=== PATIENT | female | born 1995 | race Caucasian/White ===

== ENCOUNTER 2021-02-20 13:51 | Emergency (ER) | payer MEDICAID, OTHER ==
[~2021-02-20] VITALS: Ht 167.6 cm; Wt 81.6 kg
[2021-02-20] MEDS ORDERED: OXYCODONE/APAP 5-325 MG TABLET PO ONE ×2 (14:30→19:15)
[2021-02-20] MEDS ORDERED: OXYCODONE/APAP 5-325 MG TABLET ONE ×2 (14:36→19:25)
[2021-02-20 14:41] LABS: HEMATOCRIT 36.2 % (31.2-41.9); MEAN CORPUSCULAR HEMOGLOBIN 33.8 uug (24.7-32.8); MEAN CORPUSCULAR VOLUME 98.2 fL (75.5-95.3); PLATELET COUNT (AUTO) 210 K/uL (179-408)
[2021-02-20 14:46] LABS: CARBON DIOXIDE 20 mmol/L (21-32); CHLORIDE 105 mmol/L (98-107); CREATININE 0.9 mg/dL (0.6-1.3); GLUCOSE 91 mg/dL (74-106); POTASSIUM 4.1 mmol/L (3.5-5.1); UREA NITROGEN, BLOOD 15 mg/dL (7-18)
[2021-02-20 14:51] LABS: ETHANOL 56 MG/DL (0-0)
[2021-02-20 14:53] LABS: ALANINE AMINOTRANSFERASE 13 U/L (14-59); ALKALINE PHOSPHATASE 30 U/L (50-136); ASPARTATE AMINOTRANSFERASE 10 U/L (15-37); BILIRUBIN,DIRECT 0.1 mg/dL (0.0-0.2); BILIRUBIN,TOTAL 0.2 mg/dL (0.2-1.0); TOTAL PROTEIN, SERUM 7.5 g/dL (6.4-8.2)
[2021-02-20 14:54] LABS: ACETAMINOPHEN < 2.0 ug/mL (10-30)
[2021-02-20 16:21] LABS: *AMPHETAMINE, URINE NEGATIVE (NEGATIVE); *CANNABINOID, URINE NEGATIVE (NEGATIVE); *COCCAINE, URINE NEGATIVE (NEGATIVE); *OPIATE, URINE POSITIVE (NEGATIVE); *PHENCYCLIDINE SCREEN,URINE NEGATIVE (NEGATIVE)
--- NOTE | 2021-02-20 17:02 | NUR ---
Patient is eating dinner tray with good appetite, NAD. She is calm & cooperative@this time.
[2021-02-20] MEDS ORDERED: KETOROLAC TROMETHAMINE 30 MG INJ IM ONE (17:30)
--- NOTE | 2021-02-20 17:33 | NUR ---
Patient is resting comfortably on gurney with eyes closed, intermittently sleeping & using her cellphone. Medically cleared by Dr Pérez. Psych bench worker helper Jackie's ETA= 1830.
[2021-02-20] MEDS ORDERED: KETOROLAC TROMETHAMINE 30 MG INJ ONE (18:04)
--- NOTE | 2021-02-20 18:06 | NUR ---
Patient wants more for pain, MD notified.
[2021-02-20] MEDS ORDERED: GABAPENTIN 300 MG CAPSULE PO ONE (18:15)
[2021-02-20] MEDS ORDERED: LORAZEPAM 2 MG/1 ML VIAL IM ONE (18:15)
--- NOTE | 2021-02-20 18:15 | NUR ---
Patient is shouting loudly for more pain medicine. MD notified. Reassurances done. Repeated reminders done. Patient is more agitated but easily changes her presenting mood.
[2021-02-20] MEDS ORDERED: LORAZEPAM 2 MG/1 ML VIAL ONE (18:24)
--- NOTE | 2021-02-20 18:46 | NUR ---
Psych cafeteria worker [email or web address].
--- NOTE | 2021-02-20 18:54 | NUR ---
Dr [email or web address].
--- NOTE | 2021-02-20 19:22 | NUR ---
NICKIAR to supercharger repair supervisor Adrian.
--- NOTE | 2021-02-20 19:25 | NUR ---
Dr Hood into eval patient right ankle pain and swelling.
--- NOTE | 2021-02-20 19:30 | NUR ---
Report reciv Addendum: 02/20/21 at 2026 by [email or web address] Report recieved from header operator Adrian regarding dispo status of pt. Crisis rep Jackie already assessed pt and determined that pt does not require a hold and can be released to to go home. Jackie charting assessment at this time. Jackie told me that pt is good to be DCed after the results of the ankle XR comes back. Pt has good color, temp, and appearance with VSS and PE WNL, lungs clear, RRR, normal s1s2 without ectopy/m/g/r. Pt oxygenating and perfusing well. No complaints of pain or discomfort. No s/sx of distress present.
--- NOTE | 2021-02-20 20:30 | NUR ---
Pt taken to her car by security so that she may drop off her backpack and other possessions before her comes to pick her up. is in route from [place]. Pt returned from parking lot with security without incident. Still awaiting ankle XR results.
--- NOTE | 2021-02-20 20:55 | NUR ---
Pt given DC instructions and told to follow up with PMD sita. Went over the literature the EDMD printed for her regarding her condition, his impressions and some tips and advise to manage her Bipolar disorder more effectively. Pt confirmed understanding of aftercare instruction and agreed to read over the discharge paperwork for and follow the instructions. Pt has good color, temp, and appearance, VSS, PE WNL, lungs clear, RRR, oxygenating and perfusing well. Denies any pain, nausea or discomfort. No s/sx of distess present. Pt observed being picked up by .
[2021-02-20 21:16] VITALS: BP 135/89
== END 2021-02-20 20:55 | disposition home or self-care (01) ==
LOC: ER 13:51
DX: F31.9 Bipolar disorder, unspecified (principal); S93.401A Sprain of unspecified ligament of right ankle, initial encounter; W18.40XA Slipping, tripping and stumbling without falling, unspecified, initial encounter; Y92.89 Other specified places as the place of occurrence of the external cause; S61.512A Laceration without foreign body of left wrist, initial encounter; X78.8XXA Intentional self-harm by other sharp object, initial encounter; G89.29 Other chronic pain; M54.9 Dorsalgia, unspecified; R45.851 Suicidal ideations; Z76.5 Malingerer [conscious simulation]; Z20.822 Contact with and (suspected) exposure to COVID-19
CPT/HCPCS: 36415; 73610; 85025; A4217; A4663; G0480; J1885; J2060